=== PATIENT | female | born 1935 | race African-American/Black ===

== ENCOUNTER 2017-07-14 23:28 | Emergency (ER) | payer MEDICARE ==
[~2017-07-14] VITALS: Ht 165.1 cm; Wt 54.0 kg
[2017-07-15 00:11] LABS: HEMATOCRIT 31.6 % (37.0-47.0); HEMOGLOBIN 9.1 g/dl (12.0-16.0); IMMATURE GRANULOCYTES 0.3 % (0.0-1.0); MEAN CELL VOLUME 94.6 fL CALC (80.0-100.0); MEAN CORPUSCULAR HGB 27.2 pG CALC (26.0-32.0); MEAN CORPUSCULAR HGB CONC 28.8 g/L CALC (32.0-36.0); NEUT# 6.5 thou/uL (2.00-7.15); RED BLOOD COUNT 3.34 mill/uL (4.20-5.60); RED CELL DISTRI WIDTH 13.9 % (11.5-15.5)
[2017-07-15 00:22] LABS: ALBUMIN 3.2 g/dL (3.2-5.0); BILIRUBIN, TOTAL 0.5 mg/dL (0.0-1.4); CALCIUM 8.7 mg/dL (8.4-10.2); CREATININE 1.1 mg/dL (0.5-1.0); POTASSIUM 4.8 mmol/l (3.5-5.1); TOTAL PROTEIN 5.7 g/dL (6.3-8.2)
[2017-07-15 00:26] LABS: ACT PARTIAL THROMBO TIME 22.4 SECONDS (20.0-32.5); INTERNATIONAL NORMALIZED RATIO 1.1 RATIO (0.7-1.3); PROTHROMBIN TIME 12.2 SECONDS (9.0-12.5)
[2017-07-15 04:31] VITALS: BP 104/60
== END 2017-07-15 04:31 | disposition short-term general hospital (02) ==
LOC: ED 23:28
PROVIDERS: Emergency Medicine
DX: K62.5 Hemorrhage of anus and rectum (principal); D64.9 Anemia, unspecified; R06.02 Shortness of breath; I10 Essential (primary) hypertension; I25.810 Atherosclerosis of coronary artery bypass graft(s) without angina pectoris; Z95.1 Presence of aortocoronary bypass graft; K44.9 Diaphragmatic hernia without obstruction or gangrene
CPT/HCPCS: S0164

== ENCOUNTER 2017-11-04 07:30 | Emergency (ER) | payer MEDICARE ==
[~2017-11-04] VITALS: Ht 165.1 cm; Wt 60.0 kg
[2017-11-04 08:22] LABS: ALBUMIN 4.2 g/dL (3.2-5.0); BILIRUBIN, TOTAL 0.9 mg/dL (0.0-1.4); CREATININE 1.1 mg/dL (0.5-1.0); POTASSIUM 4.9 mmol/l (3.5-5.1); TOTAL PROTEIN 7.6 g/dL (6.3-8.2)
[2017-11-04 08:23] LABS: HEMATOCRIT 50.6 % (37.0-47.0); HEMOGLOBIN 14.4 g/dl (12.0-16.0); IMMATURE GRANULOCYTES 0.3 % (0.0-1.0); MEAN CELL VOLUME 96.2 fL CALC (80.0-100.0); MEAN CORPUSCULAR HGB 27.4 pG CALC (26.0-32.0); MEAN CORPUSCULAR HGB CONC 28.5 g/L CALC (32.0-36.0); NEUT# 4.24 thou/uL (2.00-7.15); RED BLOOD COUNT 5.26 mill/uL (4.20-5.60); RED CELL DISTRI WIDTH 13.2 % (11.5-15.5)
[2017-11-04 08:58] LABS: INFLUENZA A NONE DETECTED (NONE DETECT); INFLUENZA B NONE DETECTED (NONE DETECT)
[2017-11-04] MEDS ORDERED: CRESTOR20 MG PO (09:09)
[2017-11-04] MEDS ORDERED: FUROSEMIDE20 MG PO (09:10)
[2017-11-04] MEDS ORDERED: VIAGRA100 MG PO (09:37)
[2017-11-04] MEDS ORDERED: LOSARTAN POT50 MG PO (09:40)
[2017-11-04] MEDS ORDERED: SYMBICORT 80-4.5MCG IN (09:45)
[2017-11-04] MEDS ORDERED: PROAIR HFA108 MCG/AC IN (09:47)
[2017-11-04 10:34] VITALS: BP 146/83
== END 2017-11-04 11:00 | disposition home or self-care (01) ==
LOC: ED 07:30
PROVIDERS: Emergency Medicine
DX: J44.1 Chronic obstructive pulmonary disease with (acute) exacerbation (principal); R00.0 Tachycardia, unspecified; R06.02 Shortness of breath

== ENCOUNTER 2017-11-07 16:44 | Emergency (ER) | payer MEDICARE ==
[~2017-11-07 16:44] MED LIST: CRESTOR20 MG PO; FUROSEMIDE20 MG PO; LOSARTAN POT50 MG PO; PROAIR HFA108 MCG/AC IN; SYMBICORT 80-4.5MCG IN; VIAGRA100 MG PO
== END 2017-11-07 17:44 | disposition expired ==
LOC: ED 16:44
DX: I46.9 Cardiac arrest, cause unspecified (principal)
CPT/HCPCS: J0282